=== PATIENT | female | born 1995 | race Hispanic/Latino ===

== ENCOUNTER 2022-07-24 08:03 | Outpatient (CLI) | payer OTHER | END 2022-07-24 08:04 | disposition home or self-care (01) | LOC: CSHULT 08:03 | PROVIDERS: ATTEND Family Medicine | DX: Z34.82 Encounter for supervision of other normal pregnancy, second trimester (principal); Z3A.21 21 weeks gestation of pregnancy | CPT/HCPCS: 76805 ==

== ENCOUNTER 2022-10-22 11:59 | Day surgery (SDC) | payer MEDICAID ==
[2022-10-22 12:28] VITALS: BMI 25.4
[2022-10-22] MEDS ORDERED: hydrALAZINE 20 MG/ML VIAL SLOW IVP PRN (13:25)
== END 2022-10-22 15:13 | disposition home or self-care (01) ==
LOC: CSHLD/OP 11:59
PROVIDERS: ATTEND Family Medicine
DX: O47.03 False labor before 37 completed weeks of gestation, third trimester (principal); O09.213 Supervision of pregnancy with history of pre-term labor, third trimester; Z79.899 Other long term (current) drug therapy; Z91.040 Latex allergy status; Z3A.34 34 weeks gestation of pregnancy

== ENCOUNTER 2022-11-04 20:50 | Inpatient (IN) | payer MEDICAID, SELFPAY ==
[2022-11-04 21:37] VITALS: BMI 28.9
[2022-11-04] MEDS ORDERED: Ibuprofen 800 MG TAB PO PRN (21:42)
[2022-11-04] MEDS ORDERED: hydrALAZINE 20 MG/ML VIAL SLOW IVP PRN (21:42)
[2022-11-04] MEDS ORDERED: Lidocaine 1% (PF) 30 ML VIAL SC PRN (21:42)
[2022-11-04] MEDS ORDERED: Ondansetron PF 4 MG/2 ML Vial IVP PRN (21:44)
[2022-11-04] MEDS ORDERED: Promethazine HCl 25 MG/ML VIAL IM PRN (21:44)
[2022-11-04] MEDS ORDERED: NS w/ Oxytocin 30 units 500 ML IV SCH (21:45)
[2022-11-04] MEDS ORDERED: fentaNYL/Ropivacaine Epidural 100 ML ONE (21:48)
[2022-11-04 21:56] LABS: Hemoglobin 12.3 g/dL (12.0-15.5); Mean Corpuscular HGB CONC 35.1 g/dL (32.0-36.0); Mean Corpuscular Hemoglobin 32.1 pg (27.0-33.0); Mean Corpuscular Volume 91.4 fl (81.6-98.3); Mean Platelet Volume 11.2 fl (7.4-10.4); Platelet Count 187 10x3/uL (150-450); RBC Distribution Width 12.3 % (11.5-14.5); Red Blood Cell (RBC) Count 3.83 10x6/uL (3.90-5.03); White Blood Cell (WBC) Count 8.1 10x3/uL (3.5-10.5)
[2022-11-04 22:20] LABS: HBSAg Index 0.48 S/CO (0-0.99); Hep B Surf Ag - L&D Non-Reactive S/CO (NonReactive); Syphilis Antibody Nonreactive (Nonreactive); Syphilis Antibody Index 0.09 S/CO (<1.00 Non-Reactive)
[2022-11-05] MEDS ORDERED: hydrALAZINE 20 MG/ML VIAL SLOW IVP PRN (01:45)
[2022-11-05] MEDS ORDERED: Ondansetron PF 4 MG/2 ML Vial IVP PRN (01:45)
[2022-11-05] MEDS ORDERED: Boostrix 0.5 ML (Tdap) VIAL (>/=7 yrs of age) IM ONE (01:45)
[2022-11-05] MEDS ORDERED: Milk Of Magnesia 30 ML UDCUP PO PRN (01:45)
[2022-11-05] MEDS ORDERED: Benzocaine-Menthol 82.5 ML CAN TOP PRN (01:45)
[2022-11-05] MEDS ORDERED: Lanolin Ointment 7 GM TUBE TOP PRN (01:45)
[2022-11-05] MEDS ORDERED: diphenhydrAMINE 25 MG CAP PO PRN (01:45)
[2022-11-05] MEDS ORDERED: Bisacodyl 10 MG SUPP PR PRN (01:45)
[2022-11-05] MEDS: HYDROcodone/Acetaminophen 5/325 mg Tablet PO PRN ×2 (04:37→09:54)
[2022-11-05] MEDS: Ibuprofen 800 MG TAB PO SCH ×3 (06:11→21:36)
[2022-11-05] MEDS: Prenatal Vitamin 1 TAB PO SCH (08:04)
[2022-11-05] MEDS: Docusate 100 MG CAP PO SCH ×2 (08:04→21:36)
[2022-11-05] MEDS: Ferrous Sulfate 325 MG TAB PO SCH ×2 (08:56→17:41)
[2022-11-06] MEDS: Ibuprofen 800 MG TAB PO SCH ×3 (05:17→22:06)
[2022-11-06] MEDS: Ferrous Sulfate 325 MG TAB PO SCH (10:38)
[2022-11-06] MEDS: Docusate 100 MG CAP PO SCH ×2 (12:47→22:05)
[2022-11-06] MEDS: Prenatal Vitamin 1 TAB PO SCH (12:47)
[2022-11-06] MEDS: HYDROcodone/Acetaminophen 5/325 mg Tablet PO PRN (19:50)
[2022-11-07] MEDS: Ibuprofen 800 MG TAB PO SCH ×2 (05:35→14:02)
[2022-11-07] MEDS: Ferrous Sulfate 325 MG TAB PO SCH ×3 (07:25→16:38)
[2022-11-07 07:41] VITALS: BP 103/54; TEMP 98.3
[2022-11-07] MEDS: Docusate 100 MG CAP PO SCH (14:03)
[2022-11-07] MEDS: Prenatal Vitamin 1 TAB PO SCH (14:03)
[2022-11-07] MEDS: HYDROcodone/Acetaminophen 5/325 mg Tablet PO PRN (16:41)
== END 2022-11-07 17:19 | disposition home or self-care (01) | DRG 805 ==
LOC: CSHLD/OP 20:50 → CSHLD 21:29 → CSHPP 11-05 01:01
PROVIDERS: ADMIT Family Medicine; ATTEND Family Medicine
PROC: 10E0XZZ Delivery of Products of Conception, External Approach (ICD-10-PCS; principal; 2022-11-04)
PROC: 0UQMXZZ Repair Vulva, External Approach (ICD-10-PCS; 2022-11-04)
DX: O42.013 Preterm premature rupture of membranes, onset of labor within 24 hours of rupture, third trimester (principal); O60.14X0 Preterm labor third trimester with preterm delivery third trimester, not applicable or unspecified; Z37.0 Single live birth; O34.211 Maternal care for low transverse scar from previous cesarean delivery; O70.0 First degree perineal laceration during delivery; Z3A.36 36 weeks gestation of pregnancy; Z91.040 Latex allergy status; Z79.899 Other long term (current) drug therapy; O69.81X0 Labor and delivery complicated by cord around neck, without compression, not applicable or unspecified
CPT/HCPCS: 85027; 86780; 86850; 86900; 86901; 87340; 88307; 99285; J2001; J2590

== ENCOUNTER 2023-09-18 14:34 | Outpatient (CLI) | payer OTHER | END 2023-09-18 14:35 | disposition home or self-care (01) | LOC: CSHULT 14:34 | PROVIDERS: ATTEND Family Medicine | DX: O09.892 Supervision of other high risk pregnancies, second trimester (principal); Z3A.19 19 weeks gestation of pregnancy | CPT/HCPCS: 76805 ==

== ENCOUNTER 2023-12-28 20:36 | Inpatient (IN) | payer OTHER, SELFPAY ==
[2023-12-28] MEDS ORDERED: hydrALAZINE 20 MG/ML VIAL SLOW IVP PRN ×2 (21:42→22:04)
[2023-12-28] MEDS: Betamet Acet/Betamet Na Ph 30 MG/5 ML VIAL IM SCH (22:03)
[2023-12-28] MEDS ORDERED: Carboprost 250 MCG/ML AMP IM PRN (22:04)
[2023-12-28] MEDS ORDERED: Ibuprofen 800 MG TAB PO PRN (22:04)
[2023-12-28] MEDS ORDERED: Ondansetron PF 4 MG/2 ML Vial IVP PRN (22:04)
[2023-12-28] MEDS ORDERED: Lidocaine 1% (PF) 30 ML VIAL SC PRN (22:04)
[2023-12-28] MEDS ORDERED: Promethazine HCl 25 MG/ML VIAL IM PRN (22:04)
[2023-12-28] MEDS ORDERED: Methylergonovine 0.2 MG/ML VIAL IM PRN (22:04)
[2023-12-28] MEDS: NIFEdipine 10 MG CAP PO SCH (22:04)
[2023-12-28] MEDS ORDERED: Tranexamic Acid 1,000 MG/10 ML VIAL IVP PRN (22:04)
[2023-12-28] MEDS ORDERED: Diphenoxylate HCl/Atropine Tablet PO PRN ×2 (22:04)
[2023-12-28] MEDS ORDERED: Misoprostol 200 MCG TAB PR PRN (22:04)
[2023-12-28] MEDS ORDERED: Oxytocin 30 units/NS 500 ML 500 ML IV SCH (22:15)
[2023-12-28 22:16] VITALS: BMI 24.0
[2023-12-28 22:28] LABS: Hematocrit 34.5 % (34.9-44.5); Hemoglobin 11.9 g/dL (12.0-15.5); Mean Corpuscular HGB CONC 34.5 g/dL (32.0-36.0); Mean Corpuscular Hemoglobin 32.2 pg (27.0-33.0); Mean Corpuscular Volume 93.2 fL (81.6-98.3); Mean Platelet Volume 10.3 fL (7.4-10.4); Platelet Count 194 10x3/uL (150-450); RBC Distribution Width 12.1 % (11.5-14.5); White Blood Cell (WBC) Count 10.1 10x3/uL (3.5-10.5)
[2023-12-28] MEDS: Penicillin G Potassium 5 MILL.UNITS in Sodium Chloride 0.9% 100 ML IVPB SCH (23:14)
[2023-12-28 23:18] LABS: HBsAg Index 0.41 S/CO (0-0.99); Hep B Surf Ag - L&D Non-Reactive S/CO (NonReactive)
[2023-12-28 23:19] LABS: Syphilis Antibody Nonreactive (Nonreactive); Syphilis Antibody Index 0.07 S/CO (<1.00 Non-Reactive)
[2023-12-28] MEDS: Acetaminophen 500 MG TAB PO PRN (23:57)
[2023-12-29] MEDS ORDERED: fentaNYL 50 mcg/mL 1 mL Vial SLOW IVP PRN (00:22)
[2023-12-29] MEDS: Penicillin G 2.5 MILL.units 2.5 MILL.UNITS in Premix 1 BAG IVPB SCH ×2 (04:52→21:31)
[2023-12-29] MEDS: Fluconazole 100 MG TAB PO SCH (17:17)
[2023-12-29] MEDS: metroNIDAZOLE 500 MG TAB PO SCH (21:31)
== END 2023-12-30 15:30 | disposition home health service (06) | DRG 833 ==
LOC: CSHLD/OP 20:36 → CSHLD 21:42
PROVIDERS: ADMIT Family Medicine; ATTEND Family Medicine
DX: O60.03 Preterm labor without delivery, third trimester (principal); Z91.040 Latex allergy status; Z3A.34 34 weeks gestation of pregnancy
CPT/HCPCS: 86780; 86850; 86900; 86901; 87340; 87480; 87510; 87660; 99285; J0702; J2540

== ENCOUNTER 2024-01-15 22:58 | Observation (INO) | payer MEDICAID, SELFPAY ==
[2024-01-16 03:35] LABS: Hematocrit 35.1 % (34.9-44.5); Mean Corpuscular HGB CONC 34.2 g/dL (32.0-36.0); Mean Corpuscular Volume 93.6 fL (81.6-98.3); Mean Platelet Volume 10.4 fL (7.4-10.4); Platelet Count 209 10x3/uL (150-450); Red Blood Cell (RBC) Count 3.75 10x6/uL (3.90-5.03); White Blood Cell (WBC) Count 10.2 10x3/uL (3.5-10.5)
[2024-01-16 03:40] VITALS: BMI 26.4
[2024-01-16] MEDS ORDERED: Lidocaine 1% (PF) 30 ML VIAL SC PRN (03:45)
[2024-01-16] MEDS ORDERED: Ibuprofen 800 MG TAB PO PRN (03:45)
[2024-01-16] MEDS ORDERED: fentaNYL 50 mcg/mL 1 mL Vial SLOW IVP PRN (03:50)
[2024-01-16] MEDS ORDERED: Lactated Ringer's 1,000 ML IV SCH (04:00)
[2024-01-16] MEDS ORDERED: Ondansetron PF 4 MG/2 ML Vial IVP PRN (04:00)
[2024-01-16] MEDS ORDERED: hydrALAZINE 20 MG/ML VIAL SLOW IVP PRN (04:00)
[2024-01-16] MEDS ORDERED: Promethazine HCl 25 MG/ML VIAL IM PRN (04:00)
[2024-01-16] MEDS ORDERED: Acetaminophen 500 MG TAB PO PRN (04:00)
[2024-01-16] MEDS ORDERED: Oxytocin 30 units/NS 500 ML 500 ML IVPB SCH (04:00)
[2024-01-16 04:01] LABS: Syphilis Antibody Nonreactive (Nonreactive); Syphilis Antibody Index 0.07 S/CO (<1.00 Non-Reactive)
[2024-01-16 04:18] LABS: HBsAg Index 0.46 S/CO (0-0.99); HIV (1/2) Antibody/Antigen Non-Reactive (NonReactive); HIV 1/2 INDEX 0.09 S/CO (<1.00); Hep B Surf Ag - L&D Non-Reactive S/CO (NonReactive)
== END 2024-01-16 13:35 | disposition home or self-care (01) ==
LOC: CSHLD/OP 22:58 → CSHLD 01-16 03:19 → INTOOBSV 01-16 03:19
PROVIDERS: ADMIT Family Medicine; ATTEND Family Medicine
DX: O47.03 False labor before 37 completed weeks of gestation, third trimester (principal); Z87.59 Personal history of other complications of pregnancy, childbirth and the puerperium; Z3A.35 35 weeks gestation of pregnancy; Z79.82 Long term (current) use of aspirin; Z79.899 Other long term (current) drug therapy
CPT/HCPCS: 85027; 86780; 86850; 86900; 86901; 87340; 87389; 99285

== ENCOUNTER 2024-01-17 14:57 | Inpatient (IN) | payer MEDICAID, OTHER, SELFPAY ==
[2024-01-17 16:03] VITALS: BMI 26.4
[2024-01-17 16:11] LABS: Fetal Membranes Rupture RUPTURE DETECTED (No Rupture)
[2024-01-17] MEDS ORDERED: hydrALAZINE 20 MG/ML VIAL SLOW IVP PRN ×2 (16:20→21:04)
[2024-01-17] MEDS ORDERED: Promethazine HCl 25 MG/ML VIAL IM PRN ×2 (16:20→21:04)
[2024-01-17] MEDS ORDERED: fentaNYL 50 mcg/mL 1 mL Vial SLOW IVP PRN (16:20)
[2024-01-17] MEDS ORDERED: Ondansetron PF 4 MG/2 ML Vial IVP PRN ×2 (16:20→21:04)
[2024-01-17] MEDS ORDERED: Acetaminophen 500 MG TAB PO PRN (16:20)
[2024-01-17] MEDS ORDERED: Lidocaine 1% (PF) 30 ML VIAL SC PRN (16:20)
[2024-01-17] MEDS ORDERED: Oxytocin 30 units/NS 500 ML 500 ML IV SCH (16:30)
[2024-01-17 17:25] LABS: Hematocrit 39.1 % (34.9-44.5); Hemoglobin 13.3 g/dL (12.0-15.5); Mean Corpuscular Hemoglobin 31.7 pg (27.0-33.0); Mean Corpuscular Volume 93.3 fL (81.6-98.3); Mean Platelet Volume 10.5 fL (7.4-10.4); Platelet Count 192 10x3/uL (150-450); RBC Distribution Width 12.3 % (11.5-14.5); Red Blood Cell (RBC) Count 4.19 10x6/uL (3.90-5.03)
[2024-01-17 17:57] LABS: HBsAg Index 0.48 S/CO (0-0.99); Hep B Surf Ag - L&D Non-Reactive S/CO (NonReactive)
[2024-01-17 19:05] LABS: Syphilis Antibody Nonreactive (Nonreactive); Syphilis Antibody Index 0.08 S/CO (<1.00 Non-Reactive)
[2024-01-17] MEDS: Lactated Ringer's 1,000 ML IV SCH (19:30)
[2024-01-17] MEDS ORDERED: Benzocaine-Menthol 82.5 ML CAN TOP PRN (21:04)
[2024-01-17] MEDS ORDERED: Milk Of Magnesia 30 ML UDCUP PO PRN (21:04)
[2024-01-17] MEDS ORDERED: Preparation H Ointment 28 GM TUBE PR PRN (21:04)
[2024-01-17] MEDS ORDERED: Boostrix 0.5 ML (Tdap) VIAL (>/=7 yrs of age) IM ONE (21:04)
[2024-01-17] MEDS ORDERED: Bisacodyl 10 MG SUPP PR PRN (21:04)
[2024-01-17] MEDS: Acetaminophen 500 MG TAB PO PRN (21:18)
[2024-01-17] MEDS: Oxytocin 30 units/NS 500 ML 500 ML IV SCH (21:22)
[2024-01-18] MEDS: Ibuprofen 800 MG TAB PO SCH (00:04)
[2024-01-18] MEDS: Ferrous Sulfate 325 MG TAB PO SCH (07:09)
[2024-01-18] MEDS: Docusate 100 MG CAP PO SCH (08:39)
[2024-01-18] MEDS: traMADol HCl 50 MG TAB PO PRN (11:29)
[2024-01-19 08:33] VITALS: BP 93/55; TEMP 98.7
== END 2024-01-19 14:15 | disposition home or self-care (01) | DRG 805 ==
LOC: CSHLD/OP 14:57 → CSHLD 16:22 → CSHPP 23:15
PROVIDERS: ADMIT Family Medicine; ATTEND Family Medicine
PROC: 10E0XZZ Delivery of Products of Conception, External Approach (ICD-10-PCS; principal; 2024-01-17)
DX: O42.913 Preterm premature rupture of membranes, unspecified as to length of time between rupture and onset of labor, third trimester (principal); O60.14X0 Preterm labor third trimester with preterm delivery third trimester, not applicable or unspecified; Z37.0 Single live birth; Z3A.36 36 weeks gestation of pregnancy; O34.211 Maternal care for low transverse scar from previous cesarean delivery; O69.81X0 Labor and delivery complicated by cord around neck, without compression, not applicable or unspecified; Z91.040 Latex allergy status
CPT/HCPCS: 36415; 84112; 85027; 86780; 86850; 86900; 86901; 87340; 99285; J2590; J7120